=== PATIENT | female | born 1945 | race Caucasian/White ===

== ENCOUNTER 2018-12-12 08:42 | Day surgery (SDC) | payer MEDICARE ==
[~2018-12-12] VITALS: Ht 165.1 cm; Wt 64.1 kg
[~2018-12-12 08:42] MED LIST: Aspir 8181 MG PO; Metoprolol Tar100 MG PO; SERT50 PO; VENL25 PO
[2018-12-12] MEDS ORDERED: CITA20 (09:09)
--- NOTE | 2018-12-12 11:01 | NUR ---
12/12/18 1101 Porter Pimentel 6CC OF ZARA INJECTED
== END 2018-12-12 11:35 | disposition home or self-care (01) ==
LOC: ORSCSDS 08:42
PROVIDERS: Internal Medicine Gastroenterology
PROC: 0DBM8ZX Excision of Descending Colon, Via Natural or Artificial Opening Endoscopic, Diagnostic (ICD-10-PCS; principal; 2018-12-12 10:00)
PROC: 0DBK8ZX Excision of Ascending Colon, Via Natural or Artificial Opening Endoscopic, Diagnostic (ICD-10-PCS; principal; 2018-12-12 10:00)
PROC: 0DBN8ZX Excision of Sigmoid Colon, Via Natural or Artificial Opening Endoscopic, Diagnostic (ICD-10-PCS; principal; 2018-12-12 10:00)
PROC: 0DBH8ZX Excision of Cecum, Via Natural or Artificial Opening Endoscopic, Diagnostic (ICD-10-PCS; principal; 2018-12-12 10:00)
PROC: 3E0H8GC Introduction of Other Therapeutic Substance into Lower GI, Via Natural or Artificial Opening Endoscopic (ICD-10-PCS; principal; 2018-12-12 10:00)
DX: Z12.11 Encounter for screening for malignant neoplasm of colon (principal); D12.0 Benign neoplasm of cecum; D12.2 Benign neoplasm of ascending colon; D12.4 Benign neoplasm of descending colon; D12.5 Benign neoplasm of sigmoid colon; K57.30 Diverticulosis of large intestine without perforation or abscess without bleeding; Z86.010 Personal history of colon polyps; I10 Essential (primary) hypertension; J45.909 Unspecified asthma, uncomplicated; Z79.82 Long term (current) use of aspirin; Z79.899 Other long term (current) drug therapy
CPT/HCPCS: 88305; J0330; J1980; J2405; J7120

== ENCOUNTER 2021-05-31 11:58 | Day surgery (SDC) | payer MEDICARE ==
[~2021-05-31] VITALS: Ht 162.6 cm; Wt 63.4 kg
[~2021-05-31 11:58] MED LIST changes: +CITA20; +ESCI20 PO; +IBUP600 PO; +METO50ER PO; +VENLAFAXINE HCL50 MG PO
--- NOTE | 2021-05-31 12:53 | NUR ---
Ambulatory in Day Surgery History, Chart, Medications and Allergies reviewed before start of procedure. Lungs clear T/O to Auscultation. Patient confirms NPO status and agrees with scheduled surgery. Pre-Op teaching done. Pt verbalizes understanding.
--- NOTE | 2021-05-31 17:48 | NUR ---
NOTED BRUISING TO RIGHT THIGH, RIGHT LOWER BACK/MID BACK. PT STATES SHE FELL EARLY LAST WEEK DOWN SOME STAIRS. NO OPEN SORES NOTED. PT STATES BRUISING IS NOT FROM SURGERY BUT THAT SHE HAD PRIOR TO COMING TO HOSPITAL.
--- NOTE | 2021-05-31 18:32 | NUR ---
PATIENT CAME TO THE UNIT FROM PACU TODAY AT 05/31/21. POD 0 TOTAL RIGHT KNEE SHE IS ALERT AND ORIENTED X4. VS ARE WNL AND IS ON RA. PATIENT DENIES PAIN AT THIS TIME. RIGHT KNEE IS WRAPPED IN SOL WRAP AND HAS THE POLAR PACK ON. SHE IS ABLE TO WIGGLE FINGERS AND TOES. HOWEVER, PATIENT DID RECIEVE A EPIDURAL AND REPORTS TINGLING FROM THE TOP OF THE THIGHS DOWN HER LEGS. PATIENT REPORTS "I CAN START TO FEEL MORE IN MY LEGS". PATIENT IS CURRENTLY DRINKING SOME WATER AND SNACKING ON CRACKERS. CALL LIGHT WITHIN REACH. THE PLAN IS TO GET THE PATIENT OUT OF BED ONCE EPIDURAL HAS WORN OFF AND TO THEN WORK WITH PT/OT TOMORROW.
--- NOTE | 2021-05-31 19:12 | NUR ---
RECEIVED REPORT AND ASSUMED CARE OF PT. SHE IS SITTING UP IN BED EATING HER DINNER, DENIES ANY NEEDS AT THIS TIME. WCTM.
[2021-06-01 04:45] LABS: BASOPHILS ABSOLUTE AUTO 0.01 K/mm3 (0.00-0.23); BASOPHILS PERCENT AUTO 0 % (0-2); EOSINOPHILS PERCENT AUTO 0 % (0-6); Hematocrit 38.1 % (33.0-51.0); Hemoglobin 12.3 g/dL (11.5-16.0); IMMATURE GRAN ABSOLUTE AUTO 0.07 K/mm3 (0.00-0.10); IMMATURE GRAN PERCENT AUTO 1 % (0-1); LYMPHOCYTES ABSOLUTE AUTO 1.32 K/mm3 (0.84-5.20); LYMPHOCYTES PERCENT AUTO 11 % (21-46); MONOCYTES ABSOLUTE AUTO 0.58 K/mm3 (0.16-1.47); MONOCYTES PERCENT AUTO 5 % (4-13); Mean Corpuscular HGB 32.4 pg (26.0-34.0); Mean Corpuscular HGB Conc 32.3 g/dL (31.5-36.5); Mean Corpuscular Volume 100 fL (80-100); Mean Platelet Volume 10.1 fL (9.1-12.4); NEUTROPHILS ABSOLUTE AUTO 10.02 K/mm3 (1.96-9.15); NEUTROPHILS PERCENT AUTO 84 % (41-73); Platelet Count 207 K/mm3 (150-400); RDW Coefficient Variation 12.2 % (11.7-14.2); RDW Standard Deviation 45.6 fL (35.1-46.3)
[2021-06-01 05:05] LABS: Anion Gap 3 mmol/L (6-16); Blood Urea Nitrogen 17 mg/dL (8-24); Bun/Creatinine Ratio 18.9 (12.0-20.0); CO2, Blood 30 mmol/L (21-32); Calcium, Blood 8.7 mg/dL (8.5-10.1); Chloride, Blood 105 mmol/L (98-108); Glomerular Filtration Rate >60 (60-); Glucose, Blood 146 mg/dL (70-99); Sodium, Blood 138 mmol/L (136-145)
--- NOTE | 2021-06-01 05:22 | NUR ---
SHIFT SUMMARY: PETERSON IS A&OX4. VSS, NO ACUTE EVENTS OVERNIGHT. SHE REPORTS ADEQUATE PAIN CONTROL WITH THE APAP AND TORADOL. DAIJA HOSE, PAS, AND POLAR PACK IN PLACE. SHE IS A STANDBY ASSIST WITH THE GAIT BELT AND FWW. IV TO L FOREARM PATENT. SOL WRAP TO RIGHT KNEE C/D&I. SHE IS URINATING WITHOUT DIFFICULTY, USES THE CALL LIGHT APPROPRIATELY, AND IS TOLERATING PO INTAKE WELL. SHE IS LYING IN BED WITH THE CALL LIGHT IN REACH. WILL REPORT TO DAY SHIFT RN.
--- NOTE | 2021-06-01 12:33 | NUR ---
IV REMOVED FROM RFA, CATHETER OBSERVED WITH TIP IN TACT. INSERTION SITE WNL, MODERATE AMOUNT OF BLEEDING WHEN REMOVED AND 2ND PRESSURE DRESSING WAS PLACED D/T FIRST DRESSING BECOMING MODERATELY SATURATED, 2ND DRESSING WITH NO APPARENT DRAINAGE SO FAR. PT TOLERATED IV REMOVAL WELL. THEY REPORTED SOME STINGING TYPE PAIN TO R LATERAL UPPER ARM WITH FLUSHES. AREA PALPATED AFTER REMOVAL OF IV AND PT DENIED PAIN/TENDERNESS.
[2021-06-01] MEDS ORDERED: Aspir 8181 MG PO (12:37)
--- NOTE | 2021-06-01 12:38 | NUR ---
MODERATE AMOUNT OF BLEEDING WITH REMOVAL. PRESSURE DRESSING APPLIED AND EFFECTIVE SO FAR.
[2021-06-01] MEDS ORDERED: OXYC5 PO (12:41)
[2021-06-01] MEDS ORDERED: SULTRIDS PO (12:42)
[2021-06-01] MEDS ORDERED: PROM25 PO (12:42)
--- NOTE | 2021-06-01 13:45 | NUR ---
PT RECEIVED ORDERS TO D/C TO HOME. RN DISCUSSED DISCHARGE INSTRUCTIONS WITH PT PT VERBALIZED UNDERSTANDING AND THAT SHE WOULD CALL WITH ANY QUESTIONS. SURGEONS OFFICE CALLED TO SEND ORDERS TO MEDICAL SUPPLY STORE FOR FWW AND PT'S DAUGHTER TO ADMINISTRATIVE TECH ON THE WAY TO PT'S HOME. PT DENIED PAIN AT TIME OF DISCHARGE. TRANSPORTED VIA W/C TO PT'S DAUGHTERS VEHICLE AND TRANSFERRED W/O ANY COMPLICATIONS. SENT GAIT BELT AND POLARPAK HOME WITH PT. PLAN IS FOR DAUGHTER AND PT'S TO HELP PT W/ ADL'S AT HOME AND PHYSICAL THERAPY X 6 WEEKS.
--- NOTE | 2021-06-01 13:55 | NUR ---
DISCHARGE PT PROVIDED WITH WRITTEN AND VERBAL DISCHARGE INSTRUCTIONS. PT'S SUPPLIER DEVELOPMENT MANAGER WAS NOT ABLE TO BE PRESENT FOR DC INSTRUCTIONS, EDUCATED PT TO CALL IF QUESTIONS. PT ALSO REPORTED SHE DID NOT HAVE A WALKER AT HOME AT TIME OF DISCHARGE. DR. HARDY'S OFFICE WAS CONTACTED AND REPORTED THEY WOULD SEND THE REQUEST TO [facility]. PT WAS OFFERED TO REMAIN IN THE HOSPITAL UNTIL HER DAUGHTER WAS ABLE TO GET THE WALKER. PHONE NUMBER TO [facility] SUPPLY, PROVIDED FOR THE PT. SHE DECLINED AND STATED SHE HAD PLANNED TO WAIT IN THE CAR WHILE HER DAUGHTER GOES TO THE STORE. PT EDUCATED TO ELEVATE HER LEG AT HOME SOON POSSIBLE. SHE REPORTED HER PAIN WAS WELL MANAGED AND DECLINED OXYCODONE AT TIME OF DISCHARGE. PT ESCORTED OUT IN W/C BY JESSICA STUDENT NURSE.
--- NOTE | 2021-06-01 15:14 | NUR ---
06/01/21 1514 Yisel Alvarez VERIFICATIONS: EDIT CHART.
== END 2021-06-01 14:02 | disposition home or self-care (01) ==
LOC: ORSCMMR 11:58 → SURS 17:57 → ORSCMMR 06-01 14:02
PROVIDERS: Orthopaedic Surgery
PROC: 8E0YXBZ Computer Assisted Procedure of Lower Extremity (ICD-10-PCS; principal; 2021-05-31 14:30)
PROC: 0SRC0J9 Replacement of Right Knee Joint with Synthetic Substitute, Cemented, Open Approach (ICD-10-PCS; principal; 2021-05-31 14:30)
DX: M17.11 Unilateral primary osteoarthritis, right knee (principal); I10 Essential (primary) hypertension; F32.9 Major depressive disorder, single episode, unspecified; Z79.899 Other long term (current) drug therapy
CPT/HCPCS: 36415; 73560-RT; 80048; 83735; 85025; 97110; 97116; 97162; A9270; C1713; C1776; J0171; J0690; J0735; J1100; J1885; J2250; J2370; J2405; J2704; J2795; J3010; J7120

== ENCOUNTER 2021-06-23 12:39 | Day surgery (SDC) | payer MEDICARE ==
[~2021-06-23] VITALS: Ht 162.6 cm; Wt 62.2 kg
[~2021-06-23 12:39] MED LIST changes: +OXYC5 PO; +PROM25 PO; +SULTRIDS PO
--- NOTE | 2021-06-23 13:51 | NUR ---
Ambulatory in Day Surgery. History, Chart, Medications and Allergies reviewed before start of procedure. Lungs clear T/O to Auscultation. Lungs clear T/O to Auscultation. Pre-Op teaching done. Pt verbalizes understanding. Patient States Post-Procedure ride home has been arranged.
--- NOTE | 2021-06-23 17:23 | NUR ---
SHIFT SUMMARY RECEIVED PT AT 1645. STATUS POST FOR R KNEE I&D WITH A WASHOUT. SOL BANDAGE DRESSING IN PLACE AND CDI. PT A/O X4. NO C/O PAIN AND IS ABLE TO WIGGLE TOES. PLAN TO DC HOME TOMORROW AND TO START A REGIMEN OF ANTIBIOTICS. DRESSING TO BE CHANGED TO AN AQUACEL IN THE AM. VSS. WILL REPORT TO HEMA RENEE.
[2021-06-24 04:10] LABS: BASOPHILS ABSOLUTE AUTO 0.01 K/mm3 (0.00-0.23); BASOPHILS PERCENT AUTO 0 % (0-2); EOSINOPHILS ABSOLUTE AUTO 0.01 K/mm3 (0.00-0.68); EOSINOPHILS PERCENT AUTO 0 % (0-6); Hematocrit 32.2 % (33.0-51.0); Hemoglobin 10.4 g/dL (11.5-16.0); IMMATURE GRAN ABSOLUTE AUTO 0.02 K/mm3 (0.00-0.10); IMMATURE GRAN PERCENT AUTO 0 % (0-1); LYMPHOCYTES ABSOLUTE AUTO 1.56 K/mm3 (0.84-5.20); LYMPHOCYTES PERCENT AUTO 20 % (21-46); MONOCYTES ABSOLUTE AUTO 0.57 K/mm3 (0.16-1.47); MONOCYTES PERCENT AUTO 7 % (4-13); Mean Corpuscular HGB 33.9 pg (26.0-34.0); Mean Corpuscular HGB Conc 32.3 g/dL (31.5-36.5); Mean Corpuscular Volume 105 fL (80-100); Mean Platelet Volume 9.5 fL (9.1-12.4); NEUTROPHILS ABSOLUTE AUTO 5.64 K/mm3 (1.96-9.15); NEUTROPHILS PERCENT AUTO 72 % (41-73); Platelet Count 234 K/mm3 (150-400); RDW Coefficient Variation 14.5 % (11.7-14.2); RDW Standard Deviation 56.3 fL (35.1-46.3); Red Blood Cell Count 3.07 M/mm3 (3.80-5.20); White Blood Cell Count 7.81 K/mm3 (4.00-11.30)
--- NOTE | 2021-06-24 04:26 | NUR ---
SHIFT SUMMARY: PT POD#1 FOR I&D TO RIGHT KNEE WITH WOUND CLOSURE. SOL WRAP DRESSING C/D/I. PT ABLE TO WIGGLES TOES. CAP REFILL WNL. STRONG PEDAL PULSES. PAIN MANAGED WITH TORADOL AND TYLENOL THIS SHIFT. PT OUT OF BED SEVERAL TIMES TO BATHROOM WITH SBA AND FWW+GB. TOLERATING ACTIVITY WELL. TOLERATING PO, DENIES N/V. IVF AND IV ABX INFUSING PER EMAR. PLAN FOR POSSIBLE DISCHARGE TODAY.
[2021-06-24 04:30] LABS: C-REACTIVE PROTEIN, EXT RANGE 0.59 mg/dL (0.000-0.300); Calcium, Blood 8.3 mg/dL (8.5-10.1); Creatinine, Blood 1.12 mg/dL (0.40-1.00); Potassium, Blood 4.6 mmol/L (3.5-5.5)
[2021-06-24] MEDS ORDERED: SULTRIDS PO (12:30)
[2021-06-24] MEDS ORDERED: PHENERGAN25 MG PO (12:32)
[2021-06-24] MEDS ORDERED: Percocet 5-3251 EACH PO (12:36)
--- NOTE | 2021-06-24 13:00 | NUR ---
DISCHARGE: PACKET PRINTED AND PT EDUCATED. AQUCEL PLACED TO R KNEE AND PT GIVEN EXTRA AQUCELS FOR HOME. PT GIVEN SCRIPTS, NO MEDS NEEDED TO BE FAXED. PT LEFT UNIT AT 1300 VIA WHEELCHAIR WITH CANDY TRUJILLO.
== END 2021-06-24 13:00 | disposition home or self-care (01) ==
LOC: ORSCMMR 12:39 → ORD 12:39 → SURS 16:15 → ORD 06-24 13:00
PROVIDERS: Orthopaedic Surgery
PROC: 0SPC0MZ Removal of Lateral Unicondylar Synthetic Substitute from Right Knee Joint, Open Approach (ICD-10-PCS; principal; 2021-06-23 15:30)
PROC: 0SRC0MZ Replacement of Right Knee Joint with Lateral Unicondylar Synthetic Substitute, Open Approach (ICD-10-PCS; principal; 2021-06-23 15:30)
PROC: 0JBN0ZZ Excision of Right Lower Leg Subcutaneous Tissue and Fascia, Open Approach (ICD-10-PCS; principal; 2021-06-23 15:30)
DX: T81.32XA Disruption of internal operation (surgical) wound, not elsewhere classified, initial encounter (principal); I10 Essential (primary) hypertension; Z79.899 Other long term (current) drug therapy
CPT/HCPCS: 36415; 80048; 83735; 85025; 85651; 86140; 87071; 87075; 87205; 97116; 97161; A9270; C1776; J0171; J0690; J0696; J0735; J1100; J1885; J2250; J2370; J2405; J2704; J2795; J3010; J3370; J7120

== ENCOUNTER 2024-11-04 08:09 | Day surgery (SDC) | payer OTHER ==
[2024-11-04] VITALS (16 sets, daily range): BP systolic 112–172; BP diastolic 69–96
[~2024-11-04] VITALS: Ht 162.6 cm; Wt 66.6 kg
[~2024-11-04 08:09] MED LIST changes: +ABILIFY MYCITE2 M2 PO; +Lactated Ringer's 1,000 ML IV SCH; +PHENERGAN25 MG PO; +Percocet 5-3251 EACH PO; +propofoL 20 ML IV ONE
--- NOTE | 2024-11-04 08:34 | NUR ---
Ambulatory in Day Surgery History, Chart, Medications and Allergies reviewed before start of procedure. Pre-Op teaching done. Pt verbalizes understanding. Patient States Post-Procedure ride home has been arranged.
--- NOTE | 2024-11-04 09:06 | NUR ---
11/04/24 0906 Alex Ellington CONFIRMED AND REVIEWED H&P, MEDCICATIONS, ALLERGIES, MEDICAL HISTORY, RESPIRATORY HISTORY, VITAL SIGNS, 3-LEAD EKG, CONSENTS, AND PHYSICIAN ORDERS. PATIENT CONFIRMS NPO STATUS AND AGREES WITH SCHEDULED PROCEDURE. MONITOR INTACT WITH CONTINUOUS PULSE OXIMETRY, CAPNOGRAPHY, 3-LEAD EKG, INTERMITTENT BP. SUPPLEMENTAL O2 TO BE TITRATED THROUGHOUT PROCEDURE TO MAINTAIN O2 SATURATION ABOVE 90%. PATIENT DETERMINED TO BE ASA APPROPRIATE FOR PROPOFOL SEDATION PRIOR TO START OF PROCEDURE BY DR. MANSFIELD.
--- NOTE | 2024-11-04 09:29 | NUR ---
REPORT RECEIVED FROM SHIRIN RENEE. VSS. PT ON RA. PT A&OX4. PT ABLE TO REPOSITION SELF IN BED. PT REQUESTING PO FOOD AND FLUIDS AND TOLERATING THEM WELL. PT DENIES PAIN, NAUSEA OR OTHER DISCOMFORTS.
== END 2024-11-04 09:50 | disposition home or self-care (01) ==
LOC: ORSCMMR 08:09 → ORD 08:30 → ORSCMMR 09:50
PROVIDERS: Internal Medicine Gastroenterology
PROC: 0DBM8ZX Excision of Descending Colon, Via Natural or Artificial Opening Endoscopic, Diagnostic (ICD-10-PCS; principal; 2024-11-04 08:30)
DX: Z12.11 Encounter for screening for malignant neoplasm of colon (principal); Z86.0101 Personal history of adenomatous and serrated colon polyps; K63.89 Other specified diseases of intestine; K63.5 Polyp of colon; I10 Essential (primary) hypertension; F32.A Depression, unspecified; Z79.899 Other long term (current) drug therapy
CPT/HCPCS: 88305; J2704; J7120

== ENCOUNTER 2025-10-14 09:28 | Day surgery (SDC) | payer OTHER | END 2025-10-14 12:09 | disposition home or self-care (01) | LOC: ORSCSDS 09:28 | PROC: 08RJ3JZ Replacement of Right Lens with Synthetic Substitute, Percutaneous Approach (ICD-10-PCS; principal; 2025-10-14) | DX: H25.811 Combined forms of age-related cataract, right eye (principal); I10 Essential (primary) hypertension; I25.2 Old myocardial infarction; F32.A Depression, unspecified; E07.9 Disorder of thyroid, unspecified; Z79.899 Other long term (current) drug therapy ==

== ENCOUNTER 2025-10-21 11:27 | Day surgery (SDC) | payer OTHER ==
[~2025-10-21] VITALS: Ht 162.6 cm; Wt 69.0 kg
[~2025-10-21 11:27] MED LIST changes: +Balanced Salt Epinephrine Irrigation Solution 500 mL IR SCH; +LOSARTAN POTASS25 M2; -Lactated Ringer's 1,000 ML IV SCH; +Moxifloxacin HCL 0.5 MG/0.1 ML 0.4MLSYR LEFTEYE SCH; +Ondansetron 4 MG SoluTab MM PRN; +PHENYLEPHRINE\\TROPICAMIDE\\TETRACAINE OPHTHALMIC DILATING SOLN LEFTEYE PRN; +Povidone-Iodine 450 DROP/30 ML Solution LEFTEYE SCH; +Povidone-Iodine 450 DROP/30 ML Solution ONE; +Tetracaine HCl/Pf 0.5% Opth Soln 4 ml ONE; +Triamcinolone Inj Susp 40 MG / ML 1ML Vial INJ SCH; +Triamcinolone Inj Susp 40 MG / ML 1ML Vial ONE; +diazePAM 2 MG,diazePAM 5 MG PO SCH; -propofoL 20 ML IV ONE
--- NOTE | 2025-10-21 12:21 | NUR ---
10/21/25 1221 Carol Thomas 131/70 66 100% 16 VSS
[2025-10-21 12:36] VITALS: BP 144/85
--- NOTE | 2025-10-21 12:57 | NUR ---
10/21/25 Kyara Mcguire RN ASSISTED PT TO RECLINER. VSS. PT DENIES DIZZINESS/NAUSEA/PAIN AT THIS TIME.
== END 2025-10-21 12:45 | disposition home or self-care (01) ==
LOC: ORSCSDS 11:27
PROVIDERS: Ophthalmology
PROC: 08RK3JZ Replacement of Left Lens with Synthetic Substitute, Percutaneous Approach (ICD-10-PCS; principal; 2025-10-21 13:00)
DX: H25.812 Combined forms of age-related cataract, left eye (principal); Z96.1 Presence of intraocular lens; I10 Essential (primary) hypertension; F32.A Depression, unspecified; I25.2 Old myocardial infarction; Z79.899 Other long term (current) drug therapy
CPT/HCPCS: A9270; J3301; V2632